=== PATIENT | female | born 1970 | race Caucasian/White ===

== ENCOUNTER → 2022-12-04 | Outpatient (CLI) | payer BC, SELFPAY ==
[2022-12-04 15:34] LABS: EXAGEN MAILED SPECIMEN
[2022-12-04 15:48] LABS: Color, Urine Yellow (Yellow); Glucose, Dipstick Normal (Normal); Ketone-Dipstick Negative (Negative); Leukocyte Esterase-Dipstick Negative /ul (Negative); Nitrite-Dipstick Negative (Negative); Occult Blood-Urine 25 /ul (Negative); Protein-Dipstick Negative (Negative); Specific Gravity, Urine 1.015 (1.002-1.030); Urine Bilirubin Dipstick Negative (Negative); Urine Clarity Clear (Clear); Urine Urobilinogen Normal (Normal)
[2022-12-04 15:50] LABS: Protein, Urine (Random) 9.5 mg/dL (<11.9); Protein:Creat Ratio 102 mg/g CRE (0-200)
[2022-12-04 16:27] LABS: Absolute Lymphocyte Count 3.63 X10^3/uL (0.83-4.51); Absolute Neutrophil Count 6.1 X10^3/uL (2.0-7.7); Basophil# 0.01 X10^3/uL; Basophil% 0.1 % (0-1); Eosinophil# 0.09 X10^3/uL; Eosinophils% 0.9 % (0-5); Hematocrit 42.2 % (37-47); Hemoglobin 13.9 g/dL (12.0-15.0); Lymphocyte # 3.63 X10^3/ul (0.83-4.51); Lymphocyte % 35.1 % (19-41); Mean Corp Hgb Conc 32.9 g/dL (32-36); Mean Corpuscular Hgb 31.5 pg (27.0-32.0); Mean Corpuscular Volume 95.7 fL (81-99); Mean Platelet Vol. 9.7 fl (6.2-12.0); Monocyte% 4.8 % (0-10); NRBC Flagged by Analyzer 0 % (0-5); Neutrophil # 6.08 X10^3/uL (2.7-7.7); Neutrophil % 58.8 % (47-70); Platelet Count 331 K/mm3 (150-450); RBC Distribution Width CV 13.8 % (11.6-14.6); RBC Distribution Width SD 48.5 fl (35.1-43.9); Red Blood Count 4.41 M/mm3 (4.2-5.4); White Blood Count 10.3 K/mm3 (4.4-11.0)
[2022-12-04 16:36] LABS: Partial Thromboplast Time 31.5 Seconds (24.1-36.2); Prothrombin Time (Protime)PT. 12.6 SECONDS (11.7-14.9)
[2022-12-04 16:48] LABS: AST(SGOT) 22 U/L (15-37); Alanine Aminotransfer ALT/SGPT 39 U/L (13-56); Albumin, Serum 3.8 g/dL (3.2-5.0); Alkaline Phosphatase 91 U/L (45-117); Anion Gap 3 (5-15); BUN 12 mg/dL (7-18); BUN/Creat Ratio 20.9 RATIO (10-20); CRP 7.37 mg/L (0.0-3.0); Calcium,Total 8.8 mg/dL (8.5-10.1); Chloride 109 mmol/L (98-107); Creatinine, Serum 0.57 mg/dL (0.55-1.02); EST Glomerular Filtration Rate 117 mL/min (>60); Est Glom Filt Rate - Afr Amer 142 mL/min (>60); Globulin 3.8 g/dL (2.2-4.2); Glucose 93 mg/dL (74-106); Potassium 3.4 mmol/L (3.5-5.1); Protein, Total 7.6 g/dL (6.4-8.2); Sodium Level 138 mmol/L (136-145)
[2022-12-04 17:40] LABS: Hepatitis B Surface Antibody Reactive; Hepatitis B Surface Antigen Non-Reactive (Nonreactive); Hepatitis C Antibody Non-Reactive (Nonreactive)
[2022-12-07 02:07] LABS: Thrombin Time 15.1 sec (0.0-23.0)
[2022-12-07 06:08] LABS: Dilute Prothrombin Time (dPT) 37.8 sec (0.0-47.6); Dilute Russell Viper Venom 34.8 sec (0.0-47.0); Hexagonal Phase Phospholipid 4 sec (0-11); Interpretation Comment: (.); PTT-LA 39.7 sec (0.0-43.5); Thrombin Time 15.2 sec (0.0-23.0); dPT Confirm Ratio 1.05 Ratio (0.00-1.34)
== END | disposition home or self-care (01) ==
PROVIDERS: PCP Family Medicine; Referring Provider Internal Medicine Rheumatology; Visit Provider Internal Medicine Rheumatology
DX: M06.4 Inflammatory polyarthropathy (principal); R76.8 Other specified abnormal immunological findings in serum; M79.7 Fibromyalgia
CPT/HCPCS: 36415; 80053; 81002; 82570; 84156; 85025; 85598; 85610; 85670; 85730; 86140; 86706; 86803; 87340

== ENCOUNTER → 2023-09-12 | Outpatient (CLI) | payer BC, SELFPAY ==
--- NOTE | 2023-09-12 | IMM_PTH ---
PATHOLOGY RESULTS PATIENT: MIRTHA LANGLEY LOC: [facility] U#:[id number] AGE/SX: 52/F ROOM: RE09/12/[address]: Dr. Delvis Terry MD : 1970 BED: DIS: 09/12/2023 SPEC #: [id number] RECD: 09/16/23 12:46 STATUS: YOSSI REQ #: [id number] JOSESITO: 09/12/23 00:[address]: Delvis Terry DEPT: IMMUNOHISTOCHEMISTRY RECD BY: Coral Spencer ENTERED: 09/16/23 12:47 SP TYPE: IMMUNO OTHR DR: Dr. Kwasi Adamson MD Tissues: Left breast, NOS Procedures: SMA (add) CALPONIN-1 (add) Pankeratin (initial) P40 (add) PHYSICIAN & INSTITUTION [place] [id number] SPECIMEN INFORMATION: Tissue Source: Left breast biopsy Clinical Info: Abnormal mammogram left breast Specimen Number: [id number] CPT code: 07280, 19376 x3 METHODOLOGY: Deparaffinized sections of prefer/formalin-fixed tissue or PAP/DQ stained slides are incubated with monoclonal/polyclonal antibodies/oligonucleotide probes. Localization is made via biotin free immunoperoxidase method. Appropriate controls are performed and reacted as expected. Results on target cell population are indicated in the following table: RESULTS: ANTIBODY / CLONE RESULT AE1-3 (AE1/AE3/PCK26) positive Calponin-1 (SZ365Q) positive Actin (1A4) positive P40 (BC28) positive These tests were developed and their performance characteristics determined by [facility]. They may not have been cleared or approved by the [place]. Food and Drug Administration. The FDA has determined that such clearance or approval is not necessary. The above immunohistochemical/dualISH markers are ordered and reviewed by the Pathologist. INTERPRETATION: Left breast, biopsy: Consistent with adenosis with features of adenoma. AM:karina 09/17/2023
--- NOTE | 2023-09-12 14:15 | BRBX_PTH ---
PATHOLOGY RESULTS PATIENT: MIRTHA LANGLEY LOC: [facility] U#:[id number] AGE/SX: 52/F ROOM: RE09/12/[address]: Dr. Delvis Terry MD : 1970 BED: DIS: 09/12/2023 SPEC #: [id number] RECD: 09/12/23 15:19 STATUS: YOSSI SAAVEDRA #: [id number] JOSESITO: 09/12/23 14:[address]: Delvis Terry DEPT: SURGICAL PATHOLOGY RECD BY: Liz Lopes ENTERED: 09/15/23 10:13 SP TYPE: BREAST BX OTHR DR: Dr. Kwasi Adamson MD Tissues: Left breast, NOS Procedures: Surgery Specimen Level IV HEADER OPERATION: Ultrasound-guided needle core biopsy left breast PRE-OP DIAGNOSIS: Abnormal mammogram left breast TISSUE SUBMITTED: Left breast biopsy MICROSCOPIC DIAGNOSIS Left breast, core biopsy: Focal adenosis with fibroadenoma-like change. Mild fibrocystic change, non-proliferative. Banal microcalcifications, rare. See comment. AM:karina 09/16/2023 COMMENT Immunohistochemistry ([id number]) supports the above diagnosis. Case has been reviewed in consultation with Dr. Arana who concurs with the above diagnosis. IDC:[email or web address] MICROSCOPIC DESCRIPTION Slides are reviewed. GROSS DESCRIPTION Received in fixative is one container labeled with the patient's name and designated left breast biopsy. The specimen consists of multiple elongated fragments of low-yellow fibroadipose tissue that in aggregate measure 1.5 x 0.5 x 0.1 cm. The entire specimen is submitted in one cassette. / SJ:karina 09/15/2023 TC:5 Ischemic Time: 1 minute Fixation Time: 79 hours CPT: 62771
--- OUTSIDE RECORDS SUMMARY | 2023-09-12 16:23 | XMS RPT_ITS | CCD ---
Author Name Unknown Address [id number] [place] [address] Organization [facility] Care Team Providers Care Photonics Engineering Technician Name Role Phone Juan Diego NORTON, Maureen Lucio Unavailable Juan Diego NORTON, Maureen Lucio Unavailable [facility] Surgeons Unavailable Dr. Andrew Casanova MD Unavailable Dr. Gabo Whitehead MD Unavailable Rheumatolgy Provider Unavailable Unavailable Betsy NORTON, Dr. Green Unavailable Gastroenterology Provider Unavailable Unavai hector Physical Therapy Provider Unavailable Padmini Watson MD, Dr. Lomas ([facility]) A Unavail able Orthopedic Provider Unavailable Unavailable Nirmala BERGER, Venessa Unavailable Wendy Olivo PA-C Unavailable Joseph NEWMANN, Nidhi Guerrier Unavailable Unavailable Sam BERGER, Nicole C Unavailable Unavailable Tim NEWMANN, Veronica Unavailable Unavailable Valeria DAVE, Jayne Toledo Unavailable Jeffery DAVE, Alli Guerrier Unavailable Jeffery WALTERS, Brigitte Lebron Unavailable Unavail able Amarilys Shay LPN Unavailable Unavailable Jayne Valadez RN Unavailable Unavaila mike Luna LPN, Danial Unavailable Unavailable Catrina NEWMANN, Robyn K Unavailable Unavai lable Paul DAVE, Leonora Hester Unavailable Chriss NEWMANN, Sheila Lebron Unavailable Unavailab dacia Black LPN, Shasta Keith Unavailable Unavailab dacia [place] ASSISTANT CURATOR, Anisha Arroyo Unavailable Unavailab dacia Yousif MA, Amarilys Unavailable Unavailable Soheila NORTON, Madhu Martinez Unavailable Vess ASSISTANT CURATOR, Wilfrid Lebron Unavailable Unavailable Carlos Manuel ASSISTANT CURATOR, Ella Unavailable Unavailabl clarisse Zimmerman ASSISTANT CURATOR, Jen Unavailable Unavailable Unavailable Unavailable MAUREEN ADAMSON Primary Care Unavailable MAUREEN ADAMSON Consulting Unavailable MAUREEN ADAMSON Attending Unavailable MAUREEN ADAMSON Admitting Unavailable PROVIDER, UNKNOWN Consulting Unavailable PROVIDER, UNKNOWN Consulting Unavailable PROVIDER, UNKNOWN Consulting Unavailable MAUREEN ADAMSON Admitting Unavailable MAUREEN ADAMSON Primary Care Unavailable MAUREEN ADAMSON Attending Unavailable Maile'FLIP CORNEJO NP Admitting Unavailable Maile'CORNEJOFLIP Martinez NP Primary Care Unavailable FLIP URBINA FRONT LOADER RESIDENTIAL DRIVER Attending Unavailable MAUREEN ADAMSON Consulting Unavailable PROVIDER, UNKNOWN Consulting Unavailable PROVIDER, UNKNOWN Consulting Unavailable PROVIDER, UNKNOWN Consulting Unavailable Allergies Allergy Classification Reported Allergen(s) Allergy Type Date of Onset Reaction(s) Facility (4 sources) Sulfamethoxazole / Trimethoprim Drug Allergy [facility], [facility]; [facility] Medications Current Medications Medication Drug Class(es) Dates Sig (Normalized) Sig (Original) ALPRAZolam 0.5 mg oral tablet (4 sources) Benzodiazepine Start: 09-01-2023 Xanax 0.5 mg tablet ; 1 Tablet three times daily, as needed for anxiety for 30 days Quantity: 60 {Tablet} Refills: 0 Ordered: 01-Sep-2023 MD Maureen Adamson Start: 01-Sep-2023 Comments: Medication taken as needed. [id number] Completed/Discontinued Medications Medication Drug Class(es) Dates Sig (Normalized) Sig (Original) azithromycin 250 mg oral tablet (4 sources) Macrolide Antimicrobial Start: 07-07-2020 End: 07-31-2020 Zithromax Z-Cristino 250 MG Oral Tablet ; 2 (two) Tablet today and then 1 tablet daily x 4 days for 0 days Quantity: 1 {Package} Refills: 0 Ordered: 31-Jul-2020 AB Black Start: 07-Jul-2020 End: 31-Jul-2020 Status: Inactive 12 hr buPROPion hydrochloride 150 mg extended release oral tablet (8 sources) Aminoketone Start: 08-02-2019 End: 01-17-2020 take 1 tablet by mouth twice daily buPROPion HCl ER (SR) 150 MG Oral Tablet Extended Release 12 Hour ; 1 (one) Tablet bid for 0 days Quantity: 60 {Tablet} Refills: 5 Ordered: 17-Jan-2020 ROMEO Valadez Start: 02-Aug-2019 End: 17-Jan-2020 Status: Inactive Problems Active Problems Problem Classification Problem Date Documented Da te Episodic/Chronic Abdominal pain (20 sources) Abdominal pain; Translations: [Unspecified abdominal pain] 08-06-2021 Episodic Administrative/social admission (20 sources) Issue of repeat prescriptions 05-08-2015 Episodic Allergic reactions (4 sources) Contact dermatitis and other eczema due to plants [except food] 03-04-2012 Episodic Anxiety disorders (20 sources) Generalized anxiety disorder; Translations: [Generalized anxiety disorder] 06-17-2023 Chronic Cardiac dysrhythmias (8 sources) Palpitations; Translations: [Palpitations] 06-15-2013 Episodic Chronic obstructive pulmonary disease and bronchiectasis (16 sources) Bronchitis; Translations: [Bronchitis, not specified as acute or chronic] 06-04-2022 Episodic Esophageal disorders (20 sources) Gastroesophageal reflux disease; Translations: [Gastro-esophageal reflux disease without esophagitis] 06-17-2023 Chronic Fever of unknown origin (8 sources) Fever; Translations: [Fever, unspecified] 07-31-2020 Episodic Fracture of upper limb (12 sources) Fracture of radius; Translations: [Unspecified fracture of right forearm, initial encounter for closed fracture] 06-04-2016 Episodic Genitourinary symptoms and ill-defined conditions (4 sources) Urinary symptoms ; Translations: [Unspecified symptoms and signs involving the genitourinary system] 04-01-2018 Episodic Immunizations and screening for infectious disease (8 sources) Anti-nuclear factor positive; Translations: [Other specified abnormal immunological findings in serum] 06-17-2023 Episodic Influenza (8 sources) Influenza; Translations: [Influenza due to unidentified influenza virus with other respiratory manifestations] 09-03-2019 Episodic Malaise and fatigue (8 sources) Fatigue; Translations: [Other fatigue] 07-31-2020 Episodic Mycoses (12 sources) Opportunistic mycosis; Translations: [Candidiasis, unspecified] 06-17-2023 Episodic Nausea and vomiting (8 sources) Nausea; Translations: [Nausea] 09-02-2017 Episodic Noninfectious gastroenteritis (16 sources) Chronic diarrhea; Translations: [Noninfective gastroenteritis and colitis, unspecified] 07-31-2020 Episodic Nonspecific chest pain (4 sources) Chest pain, unspecified 06-10-2013 Episodic Other aftercare (20 sources) Drug indicated; Translations: [Other terminal press operator (current) drug therapy] 12-18-2011 Episodic Other bone disease and musculoskeletal deformities (12 sources) Costal chondritis; Translations: [Chondrocostal junction syndrome [Tietze]] 06-16-2017 Episodic Other connective tissue disease (4 sources) Pain of left heel; Translations: [Pain in left foot] 02-10-2017 Episodic Other connective tissue disease (4 sources) Muscle pain; Translations: [Myalgia, unspecified site] 11-20-2015 Episodic Other connective tissue disease (12 sources) Pain in limb 06-10-2013 Episodic Other gastrointestinal disorders (8 sources) Irritable bowel syndrome; Translations: [Irritable bowel syndrome without diarrhea] 06-17-2023 Chronic Other lower respiratory disease (12 sources) Cough; Translations: [Cough] 07-31-2020 Episodic Other non-traumatic joint disorders (16 sources) Multiple joint pain; Translations: [Pain in unspecified joint] 06-17-2023 Episodic Other non-traumatic joint disorders (16 sources) Pain in right hip joint; Translations: [Pain in right hip] 06-17-2023 Episodic Other non-traumatic joint disorders (20 sources) Pain in right shoulder; Translations: [Pain in joint, shoulder region] 09-13-2020 Episodic Other non-traumatic joint disorders (4 sources) Joint pain; Translations: [Pain in unspecified joint] 11-06-2015 Episodic Other non-traumatic joint disorders (4 sources) Pain in unspecified knee; Translations: [Pain in joint, lower leg] 01-18-2014 Episodic Other non-traumatic joint disorders (4 sources) Hip pain; Translations: [Pain in right hip] 11-05-2012 Episodic Other nutritional; endocrine; and metabolic disorders (8 sources) Overweight in adulthood with body mass index of 25 or more but less than 30; Translations: [Body mass index (BMI) 27.0-27.9, adult] 07-31-2020 Episodic Other nutritional; endocrine; and metabolic disorders (8 sources) Unexplained weight loss ; Translations: [Abnormal weight loss] 07-31-2020 Episodic Other screening for suspected conditions (not mental disorders or infectious disease) (20 sources) Breast neoplasm screening status; Translations: [Encounter for screening mammogram for malignant neoplasm of breast] 08-04-2023 Episodic Other upper respiratory infections (8 sources) Sinusitis; Translations: [Chronic sinusitis, unspecified] 07-20-2021 Chronic Residual codes; unclassified (4 sources) Tobacco user; Translations: [Tobacco use] 06-17-2023 Episodic Residual codes; unclassified (8 sources) Immunization status unknown; Translations: [Other specified health status] 06-17-2023 Episodic Residual codes; unclassified (8 sources) Insomnia; Translations: [Insomnia, unspecified] 06-17-2023 Episodic Residual codes; unclassified (4 sources) Cancer cervix screening - not needed; Translations: [Procedure and treatment not carried out for other reasons] 06-17-2023 Episodic Rheumatoid arthritis and related disease (12 sources) Inflammatory polyarthropathy; Translations: [Inflammatory polyarthropathy] 06-17-2023 Chronic Screening and history of mental health and substance abuse codes (8 sources) Patient encounter status; Translations: [Encounter for screening for depression] 06-17-2023 Episodic Skin and subcutaneous tissue infections (16 sources) Cellulitis; Translations: [Cellulitis, unspecified] 06-17-2023 Episodic Spondylosis; intervertebral disc disorders; other back problems (8 sources) Cervical disc disorder; Translations: [Cervical disc disorder, unspecified, unspecified cervical region] 06-17-2023 Chronic Spondylosis; intervertebral disc disorders; other back problems (4 sources) Backache, unspecified 11-05-2012 Episodic Sprains and strains (4 sources) Complete tear, knee, anterior cruciate ligament; Translations: [Sprain of anterior cruciate ligament of left knee, initial encounter] 01-25-2014 Episodic Superficial injury; contusion (8 sources) Abrasion of ear region; Translations: [Abrasion of unspecified ear, initial encounter] 07-31-2020 Episodic Unclassified (4 sources) Follow Up for Multiple Chronic Conditions - The patient is here for follow-up of anxiety, GERD and insomnia. The patient always takes the prescribed medications. No side effects noted (needs refills). The patient has an active lifestyle but no regular exercise program. The patient's out of office blood pressure checks occur rarely and dietary compliance is fairly good usually adhering to recommendations. The patient states that weight has decreased (down 4 pounds) and headaches are noted often but not on daily basis. Note for Multiple chronic conditions follow-up : Complains of nausea and vomiting over the past several months and getting worse. This has angelo a chronic problem , worse recently. 05-20-2022 Unclassified (4 sources) Follow Up for Multiple Chronic Conditions - The patient is here for follow-up of anxiety, GERD and other condition(s) (IBS). The patient always takes the prescribed medications. No side effects noted. The patient has an active lifestyle but no regular exercise program. The patient's out of office blood pressure checks occur rarely and dietary compliance is fairly good usually adhering to recommendations. The patient states that there is no recent angina or dyspnea, depression has worsened (Has a very difficult time going to sleep for the past month.) and headaches are rarely noted. Note for Multiple chronic conditions follow-up : reviewed by [facility] 03-20-2021 Unclassified (4 sources) Follow up for multiple chronic conditions - The patient is here for follow-up of anxiety and GERD. The patient always takes the prescribed medications. No side effects noted. The patient has an active lifestyle but no regular exercise program. The patient's out of office blood pressure checks occur rarely. The patient states that weight has increased. The patient states that the disease has no overall impact. Note for Multiple chronic conditions follow-up : Has right hip pain. Lots of popping. Can't sleep on that side any longer due to the pain.Epigastric discomfort is better. Less coughing as well.Feels anxiety has been better. Does take xanax daily which is variable in effectiveness. 07-31-2020 Unclassified (4 sources) Follow Up for Multiple Chronic Conditions - The patient is here for follow-up of anxiety and GERD. The patient always takes the prescribed medications. No side effects noted (no refills needed today). The patient has an active lifestyle but no regular exercise program (does alot of walking at work/home). The patient's out of office blood pressure checks occur rarely and dietary compliance is fairly good usually adhering to recommendations. The patient states that there is no recent angina or dyspnea, weight has increased (8lbs since [facility]YS) and headaches have been noticed occasionally. Note for Multiple chronic conditions follow-up : No concerns for today. reviewed by [facility] 01-17-2020 Unclassified (4 sources) Follow Up for Multiple Chronic Conditions - The patient is here for follow-up of anxiety, GERD and other condition(s) (chronic diarrhea, has been imroving. Has decreased energy and no appetite.). The patient always takes the prescribed medications. Side effects noted (needs refills). The patient has an active lifestyle but no regular exercise program. The patient's out of office blood pressure checks occur occasionally and dietary compliance is fairly good usually adhering to recommendations. The patient states that weight has decreased (down 6 pounds in the past month.) and mood is unchanged (since changing to Bupropion has anger issues.). Note for Multiple chronic conditions follow-up : WE stopp fluoxetine last month and switched her to bupropion. her GI sx have improved. 05-10-2019 Unclassified (4 sources) Abdominal pain - The onset of the abdominal pain has been gradual and has been occurring in a persistent pattern for months (month and a half). The course has been increasing. The pain is described as a severe burning (is higher but after she eats it is lower and hurts). The pain is located in the periumbilical area and does not radiate. The symptoms are aggravated by meals (1/2 to 1 hour after eating) (if she doesn't eat it's a dull pain, like hunger) but have no relieving factors. The symptoms have been associated with diarrhea (always since month and a half), fever (off and on, tmax 100), nausea and weight loss, while the symptoms have not been associated with dysuria, heartburn or hematemesis. Note for Abdominal pain : 2 wks ago she was having a BM which was loose. No straining but hurt so bad that she felt like she was going to pass out and felt nauseous. Laid down and then felt fine.Has had chills and occasional night sweats.Maternal aunt had stomach cancer.BMs are light yellow/mucous. No blood.Didn't start with diarrhea right after her gallbladder was removed.Weight i down 11 pounds in 6 months and she is not trying to lose weight.Burning improved a little after gallbladder was removed.Symptoms improved some when she increased her omeprazole to 2 pills daily and started probiotic a couple of weeks ago but then seemed to worsen again.Admits to being anxious a lot but feels like it stems from her stomach symptoms, not vice versa.Symptoms were really bad after she had a beer - immediately had to have a BM - the same happened with wine prior to that. Coffee sometimes causes symptoms and sometimes doesn't.Stool urgency at times.Had been taking ibuprofen 600mg every 6 hours consistently but cut back about 1.5 months ago and has only taken it very infrequently since then. 12-25-2018 Unclassified (4 sources) Follow up for multiple chronic conditions - The patient is here for follow-up of anxiety and GERD. The patient always takes the prescribed medications. No side effects noted. The patient has an active lifestyle but no regular exercise program. The patient's out of office blood pressure checks occur rarely and dietary compliance is fairly good usually adhering to recommendations. The patient states that in general mood has improved. The patient states that the disease has no overall impact. Note for Multiple chronic conditions follow-up : She would like to discuss decreasing the dose on her fluoxetine from 40mg to 20mg- She is feeling well on this current dose but would like to see if the 20mg johnnie control symptoms in the same way. She seperated her R shoulder 1 year ago, was in ER , followed marvin Watson. She did PT. Now sx are worsening , pain o upper portion of R shoulder. 02-09-2018 Unclassified (4 sources) Follow up for multiple chronic conditions - The patient is here for follow-up of anxiety and GERD. The patient always takes the prescribed medications. No side effects noted. The patient has an active lifestyle but no regular exercise program. The patient's out of office blood pressure checks occur rarely. The patient states that there is no recent angina or dyspnea, there are no vision changes or weakness and they do not have headaches. Note for Multiple chronic conditions follow-up : patient having right side pain, located on arm and right side of chest. hurts when coughing . This has been for several months. She has sen chirpracter and massage. It is improving. 07-28-2017 Unclassified (4 sources) pain - She is here because she has been dealing with pain in her neck and around to right shoulder/chest. At her last appt she was given steroids - feels that the she has improved (most feels better other than under her right arm and along right chest) - zambrano and pulling feeling. Has history of blood clots - leg (one was unprovoked but they thought it was due to OCP and 2nd was following broken foot). She has had mammogram in past but it has been a while (last ordered through corporate law assistant). 06-16-2017 Unclassified (2 sources) Heel Pain - Pt has been experiencing some left heel pain for couple months. Pain is located on bottom of foot and shoots up back of heel. Pt has wearing tennis shoes that have some support most days. Has not tried any OTC medication. No swelling of foot or heel. Pain is worse when she has been on feet all day. reviewed by [facility] 02-10-2017 Unclassified (2 sources) [ADDITIONAL REASON] Follow Up for Multiple Chronic Conditions - The patient is here for follow-up of GERD and other condition(s) (Generalized anxiety.). The patient always takes the prescribed medications. No side effects noted (Uses Xanax prn. Up to one a day at that most.). The patient engages in regular exercise program 3-5 times per week (walks on trail daily.). The patient states that there is no recent angina or dyspnea, there are no vision changes or weakness, weight has increased (up 2# rom last visit.) and they do not have headaches. The patient states that the disease has mild emotional impact. Note for Multiple chronic conditions follow-up : GERD is doing well. Only uses Omeprazole prn. reviewed by [facility] 02-10-2017 Unclassified (4 sources) Follow up for multiple chronic conditions - The patient is here for follow-up of other condition(s) (anxiety). The patient always takes the prescribed medications. No side effects noted. The patient states that in general mood has improved. Note for Multiple chronic conditions follow-up : she had increased fluoxetine to 40mg but had felt like that was too much and now is back at 20mg qd, she feels like her anxiety is controlled.States that daughter is no in rehab in [place] for minimum 30days - will then be transferred to [place] for re-eval...grandchildren are in temporary custody of paternal grandparents and Miranda is able to see them.... 04-16-2016 Unclassified (4 sources) Follow Up for Multiple Chronic Conditions - The patient is here for follow-up of other condition(s) (anxiety). The patient always takes the prescribed medications. Side effects noted (ambien makes her feel hyper so pt. has only taken this medication twice. She denies any SE to fluoxetine). The patient has an active lifestyle but no regular exercise program. The patient's out of office blood pressure checks occur rarely. The patient states that breathing effort is stable, there is no recent angina or dyspnea (no panic attacks since starting medication.), weight has decreased, in general mood has improved (questioning if fluoxetine and be increased slightly. At the end of the day, pt. feels more anxious.) and sleep patterns have improved (still has trouble at times). 02-26-2016 Unclassified (3 sources) Follow up for multiple chronic conditions - The patient is here for follow-up of GERD and other condition(s) (anxiety.). The patient always takes the prescribed medications. No side effects noted. The patient has an active lifestyle but no regular exercise program. The patient's out of office blood pressure checks occur rarely and dietary compliance is fairly good usually adhering to recommendations. The patient states that breathing effort is stable, there is no recent angina or dyspnea, there are no vision changes or weakness, depression has worsened (has daughter and grandkids living with her and with work.) and they do not have headaches. mykel watson. Note for Multiple chronic conditions follow-up : reviewed by [facility] 08-01-2014 Unclassified (3 sources) [ADDITIONAL REASON] Transition into care - The patient is transitioning into care from another physician (mykel watson for knee surgery.) and a summary of care was not provided . 08-01-2014 Unclassified (4 sources) Follow Up for Multiple Chronic Conditions - The patient is here for follow-up of other condition(s) (anxiety and smoking cessation.). The patient always takes the prescribed medications. No side effects noted (takes Wellbutrin for anxiety and smoking cessation and uses xanax prn.). The patient has an active lifestyle but no regular exercise program. Note for Multiple chronic conditions follow-up : Pt states is down to about 10 cigarettes a day. Used to smoke at least pack a day. Still finds herself very anxious at times where she will get palpatations and will find herself breathing heavy for few minutes and then itis gone. Just comes on at any given time. Says she has dealt with this forever but happening more frequently since trying to stop smoking. Pt does have SAD sx as well. 08-17-2012 Unclassified (2 sources) Follow Up for Multiple Chronic Conditions - The patient is here for follow-up of GERD and other condition(s) (Generalized anxiety.). The patient always takes the prescribed medications. No side effects noted (Uses Xanax prn. Up to one a day at that most.). The patient engages in regular exercise program 3-5 times per week (walks on trail daily.). The patient states that there is no recent angina or dyspnea, there are no vision changes or weakness, weight has increased (up 2# rom last visit.) and they do not have headaches. The patient states that the disease has mild emotional impact. Note for Multiple chronic conditions follow-up : GERD is doing well. Only uses Omeprazole prn. reviewed by [facility] 02-10-2017 Unclassified (2 sources) [ADDITIONAL REASON] Heel Pain - Pt has been experiencing some left heel pain for couple months. Pain is located on bottom of foot and shoots up back of heel. Pt has wearing tennis shoes that have some support most days. Has not tried any OTC medication. No swelling of foot or heel. Pain is worse when she has been on feet all day. reviewed by [facility] 02-10-2017 Unclassified (1 source) Transition into care - The patient is transitioning into care from another physician (mykel watson for knee surgery.) and a summary of care was not provided . 08-01-2014 Unclassified (1 source) [ADDITIONAL REASON] Follow up for multiple chronic conditions - The patient is here for follow-up of GERD and other condition(s) (anxiety.). The patient always takes the prescribed medications. No side effects noted. The patient has an active lifestyle but no regular exercise program. The patient's out of office blood pressure checks occur rarely and dietary compliance is fairly good usually adhering to recommendations. The patient states that breathing effort is stable, there is no recent angina or dyspnea, there are no vision changes or weakness, depression has worsened (has daughter and grandkids living with her and with work.) and they do not have headaches. mykel watson. Note for Multiple chronic conditions follow-up : reviewed by [facility] 08-01-2014 Viral infection (4 sources) Herpes zoster; Translations: [Zoster without complications] 06-26-2017 Episodic Past or Other Problems Problem Classification Problem Date Documented Da te Episodic/Chronic Unclassified (4 sources) Well Adult, female - The patient feels well with minor complaints (Continues with joint pain), has decreased energy level and is sleeping poorly. The first day of the last menstrual period was : (Hysterectomy 2014). The patient has a balanced diet and takes supplemental vitamins. The patient does not exercise. The patient sleeps 4 hours per night. Note for Well Adult, female : Is fasting today 06-17-2023 Unclassified (4 sources) cellulitis - Seen in office 01/30/23 for cellulitis, was given Bactrim. Pt completed 7 days of Bactrim and broke out into hives, D/C'd TX and started Keflex, finished Keflex and rash still remains. Located in stomach and surrounding area. Voices c/o pain, area red. 02-21-2023 Unclassified (4 sources) Rash - The onset of the rash has been gradual and has been occurring in a persistent pattern for 5 days. The course has been increasing. The rash is characterized as red. The rash was first seen on the abdomen (belly button). It spread to no progression (just spreading further around the belly button). There has been associated pain, erythema and edema. There has been associated chills. Note for Rash : started as a very little spot that had a white headwas cleaning w peroxide and a vaishali on it reviewed by [facility] 01-30-2023 Unclassified (4 sources) Joint Complaints multiple - The onset of the joint complaints has been acute , and they have been occurring in an increasing pattern for years. The course has been gradually worsening. The joint complaints are described as a moderate to severe pain, redness, swelling, stiffness and tenderness. The pain is located in the neck, spine, left elbow, right elbow, left wrist, right wrist, left hand, right hand, left knee, right knee, left ankle, right ankle, left foot and right foot. There are no aggravating factors. The joint complaints are relieved by acetaminophen and NSAIDs. Note for Joint complaints : Father has RA and temporal arteritis, some cousins. 11-12-2022 Unclassified (4 sources) Cough - The onset of the cough has been acute and has been occurring for 1 week. The course has been constant. The cough is characterized as productive of mucoid sputum. The cough occurs all the time. Associated symptoms include headache. Note for Cough : right ear pain reviewed by [facility] 06-04-2022 Unclassified (4 sources) Abdominal pain - The onset of the abdominal pain has been acute and has been occurring in an episodic pattern for 9 days. Each episode lasts 30 minutes. The course has been recurrent. The pain is described as a moderate sharp pain. The pain is located in the entire abdomen and does not radiate. The symptoms are relieved by bowel movements. The symptoms have been associated with constipation, heartburn and nausea. Note for Abdominal pain : No recent antibiotics or travel.Last BM was 2 days ago at 3am - hard initially but then loose; pain with it.Taking probiotic; continues on omeprazole 40mg daily.Lots of abd cramping, sweating, nausea, hands going numb (tried xanax but it made her stomach cramp so she stopped). Did have an episode when she was pushing to have BM and had pain around her back to lower pelvis and then directly down - felt like labor pain. Ever since has felt like it is hard to hold her urine. Pain starts when she has to have BM and is better after BM. Lots of belching. Pepto has helped with indigestion. 07-20-2021 Unclassified (4 sources) Cold Symptoms - Symptoms include sneezing, nasal congestion, runny nose, ear pain (bilateral, left side is worse.), ear fullness, sore throat, dry cough, productive cough (occasionally), fever (highest 100.8), general malaise and headache, but do not include chills. The onset was sudden 1 week(s) ago. The symptoms occur constantly. The patient describes this as moderate in severity and worsening. Current treatment includes non-prescription cold medication. Note for Upper respiratory infection : Complains of chest hurting with deep breaths, increased fatigue. 04-30-2021 Unclassified (4 sources) Hip pain - The onset of the hip pain has been gradual and has been occurring in a persistent pattern for months. The course has been without change (now is having times where hip gives out and cause pt to fall; has happened 3 times in the past 2 weeks). The hip pain is described as being located in the right hip. The hip pain radiates to the anterior thigh. Note for Hip pain : Hip went out yesterday as she was turning and pt tried to catch herself (grabbed on to car overhead handle with right arm and fell forward) and now she is having right shoulder pain. that same shoulder years ago. Has been doing ice/heat application and taking ibuprofen which does help. Has been doing PT for hip and feels it is helping. 09-13-2020 Unclassified (4 sources) Nausea - The onset of the nausea has been acute and has been occurring in an intermittent pattern. The course has been increasing. Note for Nausea : Nausea gets worse when she is up and doing something, also has some SOB with exertion, no chest pain, has some burning and tightness in epigastric area - not having this right now. Unsure if it is food related since hasn't really been eating. Has a dry cough.Painful BMs - gets lower abd cramping and then it improves temporarily after a BM. Imodium helps but cramping gets worse with this.Chills and body aches.Has been on omeprazole 20mg for extended period of time.Decreased appetite.No loss of taste or smell.Normal EGD and colonoscopy 12/2018. 07-07-2020 Unclassified (4 sources) Joint complaints (multiple) - Note for Joint complaints : Pt is here today complaining of persistent symptoms.Was seen 05/31/2020 for cold symptoms with a fever - negative covid test.Continued with joint pain, cold sweats, fatigue, etc but no rash. No further fever. Has swelling of joints of hands (bilat) and feet - morning stiffness of both - better after gets going. Also has right hip pain - if lays on it or it goes into groin.Has a physical job - was breathing heavy after doing that and wearing her mask last week. Restarted smoking about 6 months ago - smoking 1 PPD.No known tick bite.Feels had a recent flare-up of IBS. Previously saw GI, Dr. Alvarenga, and was given bentyl but had side effects with that. Family history - dad- HTN, RA; sister- HTN, maternal gma - thyroid issues; sister - melanoma; paternal grandma - lung cancer; paternal gpa - lung cancer. 07-03-2020 Unclassified (4 sources) Recheck - Patient was last seen 05/31/2020 for fever, had negative Covid-19 test at that time. Is feeling worse. Is having all over body aches, joint and muscle aches. Is having chest tightness. Been having more headaches. Denies having fever recently. feels very tired, weak. Feels shaky and gets sweats. Started about 2 days ago with diarrhea, is having multiple times daily. States that she does have IBS. Been taking Ibuprofen for the pain. Feels very nauseated. No vomiting. reviewed by [facility] 06-30-2020 Unclassified (4 sources) Cold Symptoms - Symptoms include sneezing, runny nose, ear pain (left side), ear fullness, sore throat, dry cough, fever (highest 102), chills, general malaise and headache. The onset was sudden 5 day(s) ago. The symptoms occur constantly. The patient describes this as unchanged. Current treatment includes non-prescription cold medication. Note for Upper respiratory infection : Increased fatigue and slight chest tightness. reviewed by [facility] 05-31-2020 Unclassified (4 sources) Ear pain - The pain has been occurring in an intermittent pattern for 3 weeks (has had intermittent left ear pain for the past 3 weeks but is worse today). The course has been increasing. The pain is described as a sharp pain and pressure. The pain is described as being located in the inner ear and behind the ear (over mastoid) (above the ear). The pain is felt in the left ear. The symptoms have been associated with sore throat (on the left side) and vertigo (some), while the symptoms have not been associated with decreased hearing. Note for Ear pain : Yesterday had low grade fever was 100 F and did not feel well.Today, noticed some bloody drainage from the left ear when she swabbed her left ear.Patient denies any chills, body aches, or headache. She states that she does not usually use cotton swabs inside her ear. She has not been around anyone who has been sick and she has not been at any large gatherings. 03-28-2020 Unclassified (4 sources) Cold Symptoms - Note for Upper respiratory infection : Was treated for influenza with Tamiflu 09-03-19 due to influenza exposure at work. Started with productive cough over the past couple of day and right ear pain. Fever last evening 100.7. reviewed by [facility] 09-07-2019 Unclassified (4 sources) Follow up consultation - The patient is here to follow-up after Emergency Room/Urgent Care ([facility] with abdominal pain.) on : (04-05-19). Note for Consultation follow-up : Has a histor of IBS. Continues with abdominal pain and nausea. Occasional constipation. Weight is down 21 pounds since May. Also states Im so tired all the time . reviewed by [facility] 04-06-2019 Unclassified (4 sources) Abdominal pain - The onset of the abdominal pain has been acute and has been occurring in a persistent pattern for 4 days. The course has been recurrent. The pain is described as a severe burning, sharp pain, pressure sensation, fullness and cramping. The pain is located in the right upper quadrant and radiates to the back and right upper quadrant. The symptoms are aggravated by meals (1/2 to 1 hour after eating) but have no relieving factors. The symptoms have been associated with bloating, chest pain, diarrhea, fever, heartburn and nausea, while the symptoms have not been associated with vomiting. Note for Abdominal pain : reviewed by [facility] 06-15-2018 Unclassified (2 sources) UTI - Symptoms include urinary frequency, urinary urgency and back pain. The pain is located in the back. There is no radiation. The patient describes the pain as dull and aching. Onset was gradual week(s) ago. There is no known event that preceded symptom onset. The symptoms occur constantly. The patient describes this as moderate in severity and unchanged. Associated symptoms include fever (low grade), chills and nausea. Note for UTI : reviewed by [facility] 04-01-2018 Unclassified (2 sources) [ADDITIONAL REASON] Cold Symptoms - Symptoms include sore throat, scratchy throat, dry cough, wheezing, fever (low grade), chills, general malaise (no energy - achy) and headache, but do not include nasal congestion, runny nose or productive cough. The onset was gradual 2 day(s) ago. The symptoms occur constantly. The patient describes this as moderate in severity and worsening. Current treatment includes acetaminophen and NSAIDs. Risk factors do not include child in daycare or smoking. The patient has not been exposed to an individual with a cough, an individual with an upper respiratory infection, an individual with similar symptoms or an individual with strep. Note for Upper respiratory infection : Had fever of 101 yesterday 04-01-2018 Unclassified (4 sources) r/o shingles - patient was in twice in May for right shoulder pain, and costochondritis, she was last given prednisone for the pain, shock feeling of pain ; when she finished the prednisone she then broke out in blisters on her right inner thigh. They were itchy to start and are now burning and tingly.... 06-26-2017 Unclassified (4 sources) Back pain - The onset of the back pain has been gradual and has been occurring in a persistent pattern for 3 weeks. The course has been increasing. The pain is located in the upper back (right back, shoulder, under arm pit and around to her right chest. Also goes up her neck and to her head on the right side). The symptoms are relieved by nothing (Hurts all the time and tried to lift hull and dropped it. Has tried ibuprofen but that doesn't really help. Hurts to breathe and talk. Feels she is not short of breath but has to take shallow breaths due to pain. Has a little dry cough. Is going to see a massage therapist. Last week she did think she had the flu - vomiting, nausea and low fever. She still has nausea and is shaky. Did get flu shot yesterday.). Note for Back pain : Has been doing ice application.Initially when this started she woke up with the pain in the morning so just thought she had slept wrong.Had a seperated shoulder in January but that healed up fine with therapy.Symptoms are worsening.Has had intermittent nausea this entire time. 06-07-2017 Unclassified (4 sources) Right arm check - Took off cast 3 days due to skin irritation. Here for arm check. Is doing well. reviewed by [facility] 06-04-2016 Unclassified (4 sources) Cast check - Fracture of right radius. Here for one week cast check. 05-14-2016 Unclassified (4 sources) Wrist Pain - The pain is in the right wrist and is described as being located in the entire wrist. The onset of the wrist pain has been acute and has been occurring for 1 day (fell this morning.). Note for Wrist pain : Swollen and painful. 05-07-2016 Unclassified (4 sources) Anxiety - The onset of the anxiety has been gradual and has been occurring in a persistent pattern for 6 months. The course has been increasing. The anxiety is characterized as apprehension, expectant dread, sinking feeling and nervousness. Precipitating factors include specific circumstances (daughter has fallen back into drug abuse pattern and is now homeless. she has her 2 children with her aged 2 and 4...Miranda states that she never knows where they are or if they are safe until they show up - dirty and hungry...she states that childrens services is involved. the one mena father does not want custody of his son...the other mena father is willing to share custody and take both boys so they are not . Otis daughter is angry with her family for reporting her to children services....). The symptoms have been associated with diarrhea, dry mouth, feeling of sadness, headache, insomnia (she states that in the past she has used xanax for prn anxiety - this is not helping right now and she notes that the xanax is not even helping her sleep...), nausea and palpitations, but have not been associated with hallucinations, illusions, paresthesias, suicidal thoughts, vomiting or weight loss. 02-07-2016 Unclassified (4 sources) Joint complaints (multiple) - The onset of the joint complaints has been gradual , and they have been occurring in an increasing pattern for months. The course has been gradually worsening. The joint complaints are described as a moderate to severe swelling and tenderness. The pain is located in the right shoulder, right hand (and left hand will get a little tender but right is the worst.) and right hip. There are no aggravating factors. Associated symptoms include fatigue (and just flu symptoms of aches all over and just not feeling well. Labs done and here to discuss results.). Note for Joint complaints : Pt was started on Prednisone and took last dose on Friday and that has helped quite a bit. Prednisone has made pain tolerable. Pain is mostly muscular. Pain is present on awakening, no particular activity worsens it. 11-20-2015 Unclassified (4 sources) Multiple complaints - Note for Multiple complaints : Complains of right shoulder, arm and right hand pain for several weeks and getting worse. Has family history of rheumatoid arthritis. Also complains of cysts in the arch of right foor. Also complains of generalized body aches and occasional low grade fevers. 11-06-2015 Unclassified (4 sources) Knee pain - The onset of the knee pain has been acute and has been occurring in a persistent pattern for 2 days. The course has been increasing. The knee pain is moderate to severe in the left knee. The knee pain is characterized as a sharp stabbing. The knee pain is described as being located in the medial knee, lateral pain and under patella. The knee pain is aggravated by physical activity. The knee pain is relieved by NSAIDs (relieves, but no resolution). The symptoms have been associated with giving way, joint swelling, instability, warmth, difficulty arising from chair and difficulty going up and down stairs, but have not been associated with erythema, burning sensation, fever or other joint complaints. Note for Knee pain : back in november she had popped her knee when she was standing and turning, it was doing well until friday when she was in a squatting position and tried to turn - herad a pop and knee gave way 01-18-2014 Unclassified (4 sources) Shoulder pain - The onset of the shoulder pain has been sudden following no specific incident and has been occurring in an intermittent pattern for 3 months. The course has been gradually worsening. The pain is characterized as a moderate sharp stabbing. The pain is described as being located in the right shoulder and is aggravated by physical activity, any movement and lifting. Relieving factors include medication (Ibuprofen takes the edge off but does not take away pain completely.). The symptoms have been associated with painful ROM and decreased ROM (and now also having some numbness and tingling in right ring finger and 5th finger. Also feels like pain is moving up towards side of neck and giving her some slight headaches at times.). There has been no previous diagnostic testing. There have been no previous evaluations. There has been no previous physical therapy. Note for Shoulder pain : reviewed by [facility] 11-29-2013 Unclassified (4 sources) Abdominal pain - The onset of the abdominal pain has been gradual and has been occurring for 5 days. The course has been recurrent. The pain is described as a moderate burning. The pain is located in the upper abdomen and radiates to the back. The symptoms have no aggravating factors but are relieved by antacids (Took 4 tums for first time today and they relieved the pain a little but not completely.). The symptoms have been associated with bloating (and gassy), diarrhea, nausea and vomiting. Note for Abdominal pain : No previous evaluations. Does have Gall Bladder. No new stressors, no chnages in diet. 10-08-2013 Unclassified (4 sources) Leg Pain - The leg pain began gradually over time and has been occurring for 2 weeks. The symptoms have been occurring in a recurrent pattern. The symptoms are described as a burning sensation and cramping and are moderate to severe. The symptoms occur when walking. There is involvement of the left lower extremity (knee. Pain starts behind knee and radiates to upper left thigh and around to front of leg. No numbness noted.). There are no precipitating factors. Aggravating factors include exertion. Relief is provided by lying down (at times). The symptoms have been associated with dizziness (random and she cant tell if related), fatigue and fever, while the symptoms have not been associated with blurred vision, dyspnea, focal neurologic deficits, pallor of extremity, paresthesias, numbness and tingling in toes, foot/leg ulcers or calf swelling. Note for Leg pain : Pt has h/o dvt's (first after OCP usage, second after breaking her foot and being on bedrest). Other clots have been in her right leg. Pt has taken asa in the last 2 weeks (not today or yesterday) Denies SOB, diaphoresis 06-10-2013 Unclassified (4 sources) Abdominal pain - The onset of the abdominal pain has been acute and has been occurring in a persistent pattern for 4 days. The course has been increasing. The pain is described as a moderate dull ache and cramping. The pain is located in the left lower quadrant and radiates to the epigastrium and periumbilical area. The symptoms are aggravated by meals (1/2 to 1 hour after eating) but are relieved by antacids (minimal relief). The symptoms have been associated with bloating, diarrhea (initally, no BM today), nausea and use of alcohol (drinks socially only not daily), while the symptoms have not been associated with anorexia, chest pain, constipation, dark urine, dysuria, fever, heartburn or vomiting. 12-23-2012 Unclassified (4 sources) Hip pain - The onset of the hip pain has been sudden following no specific incident and has been occurring in a persistent pattern for 1 day. The course has been worsening. The hip pain is described as being a moderate to severe sharp stabbing located in the hip. The hip pain radiates to the right buttock (radiation down posterior thigh to knee. as well as up into back). The pain is aggravated by general physical activity and any movement. Relieving factors include elevation of leg. The symptoms have been associated with limping, numbness, tingling (slightly), difficulty arising from chair and difficulty arising from a kneeling position, while the symptoms have not been associated with stiffness, weakness, muscle atrophy, swelling in the leg, trauma, fever or other joint complaints. There have been no previous diagnostic tests. There have been no previous evaluations. There has been no previous physical therapy. There has been no previous surgeries. There has been no need for use of assistive devices. Previous medications have included NSAID. Note for Hip pain : Pt. states I have a h/o arthritis in my hip Pt. usually takes aleve with relief from discomfort. Pt. has not had x-rays done, but states her whole family has arthritis problems. SHe also has history blood clot x 2 (both were s/p surgery) 11-05-2012 Unclassified (4 sources) Rash - The onset of the rash has been acute and has been occurring in a persistent pattern for 10 days. The course has been increasing. The rash is characterized as red, weeping and grouped in crops. The rash was first seen on the upper extremity (right). It spread to the trunk and the lower extremity. There has been associated itching and drainage, while there has been no associated pain or edema. There has been no associated fever or mucous membrane lesions. Note for Rash : Pt. has tried otc remedies with no improvement. Pt. has never had poison linda before. 03-04-2012 Unclassified (4 sources) anxiety issues - Patient is here and describes feeling very anxious. Thinks this episode is worse. She takes Xanax 0.5mg one half tablet at bedtime. Last night she had chest pain and heart pounds very hard. She took another 1/2 tab last evening and still feels strung out. . She thinks this is anxiety. Work is very stressful right now. Is not taking the Wellbutrin as previously prescribed. States that she felt increased anxiety while taking the Wellbutrin. 09-02-2011 Unclassified (4 sources) F/U anxiety/depression - Pt here for f/u on anxiety and depression. Wellbutrin working well. Only uses the xanax mainly at night prn when she can't sleep and mind racing. No refills needed today. No other concerns today. Feels is doing well. Just had Tetanus 3 years ago.I had seen her 1 month ago and started the Wellbutrin at that time. Less bad adys and not as severe. 04-29-2011 Unclassified (4 sources) Increased Anxiety and Stress - Is having increased anxiety and stress at home and would like to discuss medication. She has a teenage daughter who is in legal trouble and is also and lives in the home w pt. Pt is fearful that she will end up raising the child.Sx include panic attacks, pervasive anxious feeling, difficulty sleeping. Xanac has worked well in past but not as well now and she does not like to take it when working. In past she was on Paxil ( not effective ), Effexor ( side effects ) and then was on Buspar for a prolonged time. Buspar helped but was not completely effective. 03-27-2011 Unclassified (4 sources) left lower extremity pain - [place]ed [place] and injured left lower leg, has quite a bit of bruising, pt is concerned she has a DVT, has had before and sx are similar. 01-17-2011 Unclassified (2 sources) Cold Symptoms - Symptoms include sore throat, scratchy throat, dry cough, wheezing, fever (low grade), chills, general malaise (no energy - achy) and headache, but do not include nasal congestion, runny nose or productive cough. The onset was gradual 2 day(s) ago. The symptoms occur constantly. The patient describes this as moderate in severity and worsening. Current treatment includes acetaminophen and NSAIDs. Risk factors do not include child in daycare or smoking. The patient has not been exposed to an individual with a cough, an individual with an upper respiratory infection, an individual with similar symptoms or an individual with strep. Note for Upper respiratory infection : Had fever of 101 yesterday 04-01-2018 Unclassified (2 sources) [ADDITIONAL REASON] UTI - Symptoms include urinary frequency, urinary urgency and back pain. The pain is located in the back. There is no radiation. The patient describes the pain as dull and aching. Onset was gradual week(s) ago. There is no known event that preceded symptom onset. The symptoms occur constantly. The patient describes this as moderate in severity and unchanged. Associated symptoms include fever (low grade), chills and nausea. Note for UTI : reviewed by FLAVIA 04-01-2018 Results Test Name Value Interpretation Reference Range Facil ity Vital Signs Date Time Vital Sign Value Performing Clinician Saud malik 06-17-2023 10:040 Body height 161.29 cm [facility].; [place] [facility] [place]. 06-17-2023 10:0400 Body mass index (BMI) [Ratio] 24.58 kg/m2 [facility].; [place] [facility], [place]. 06-17-2023 10:21-0400 Body surface area Derived from formula 1.68 m2 [facility], [facility].; [place] [facility], [place]. 06-17-2023 10:0400 Body weight 63.96 kg [facility], [facility].; [place] [employer] [facility] [place]. 06-17-2023 10:210400 Diastolic blood pressure 81 mm[Hg] [facility].; [place] [employer] [facility] [place]. Encounters Encounter Date Encounter Type Care Provider Facility Start: 09-08-2023 End: 09-08-2023 Orders [facility] Start: 09-04-2023 End: 09-04-2023 ambulatory [facility] Start: 08-26-2023 End: 08-26-2023 ambulatory [facility] Start: 08-04-2023 End: 08-04-2023 Orders Maureen Adamson MD Work Phone: [facility] Start: 06-26-2023 End: 06-26-2023 ambulatory [facility] Start: 06-26-2023 Encounter for gynecological examination (general) (routine) without abnormal findings [facility] Start: 06-17-2023 End: 06-17-2023 Patient encounter status Maureen Adamson MD Work Phone: [facility] Start: 06-17-2023 End: 06-17-2023 Periodic preventive med est patient 40-64yrs Maureen Adamson MD Work Phone: [facility] Start: 02-21-2023 End: 02-21-2023 Office outpatient visit 15 minutes Maureen Adamson MD Work Phone: [facility] Start: 02-06-2023 End: 02-06-2023 Medication Maureen Adamson MD Work Phone: [facility] Start: 02-05-2023 End: 02-05-2023 Medication Maureen Adamson MD Work Phone: [facility] Start: 01-30-2023 End: 01-30-2023 Office outpatient visit 15 minutes Maureen Adamson MD Work Phone: [facility] Start: 11-14-2022 End: 11-14-2022 Orders Maureen Adamson MD Work Phone: [facility] Start: 11-12-2022 End: 11-12-2022 Office outpatient visit 15 minutes Maureen Adamson MD Work Phone: [facility] Start: 06-04-2022 End: 06-04-2022 Office outpatient visit 15 minutes Maureen Aadmson MD Work Phone: [facility] Start: 05-20-2022 End: 05-20-2022 Office outpatient visit 15 minutes Maureen Adamson MD Work Phone: [facility] Start: 08-06-2021 End: 08-06-2021 Orders Maureen Adamson MD Work Phone: [facility] Start: 07-20-2021 End: 07-20-2021 Patient encounter procedure Maureen Adamson MD Work Phone: [facility] Start: 04-30-2021 End: 04-30-2021 Office outpatient visit 15 minutes Maureen Adamson MD Work Phone: [facility]. Start: 03-20-2021 End: 03-20-2021 Office outpatient visit 15 minutes Maureen Adamson MD Work Phone: [facility]. Start: 09-13-2020 End: 09-13-2020 Patient encounter procedure Maureen Adamson MD Work Phone: [facility]. Start: 08-25-2020 End: 08-25-2020 Medication Maureen Adamson MD Work Phone: [facility] Start: 08-02-2020 End: 08-02-2020 Orders Maureen Adamson MD Work Phone: [facility]. Start: 07-31-2020 End: 07-31-2020 Patient encounter procedure Maureen Adamson MD Work Phone: [facility] Start: 07-07-2020 End: 07-07-2020 Medication Maureen Adamson MD Work Phone: [facility]. Start: 07-07-2020 End: 07-07-2020 Orders Maureen Adamson MD Work Phone: [facility]. Start: 07-07-2020 End: 07-07-2020 Patient encounter procedure Maureen Adamson MD Work Phone: [facility]. Start: 07-03-2020 End: 07-03-2020 Patient encounter procedure Maureen Adamson MD Work Phone: [facility]. Start: 06-30-2020 End: 06-30-2020 Patient encounter procedure Maureen Adamson MD Work Phone: [facility] Start: 05-31-2020 End: 05-31-2020 Patient encounter procedure Maureen Adamson MD Work Phone: [facility] Start: 03-28-2020 End: 03-28-2020 Office outpatient visit 15 minutes Maureen Adamson MD Work Phone: [facility]. Start: 01-17-2020 End: 01-17-2020 Office outpatient visit 15 minutes Maureen Adamson MD Work Phone: [facility]. Start: 09-07-2019 End: 09-07-2019 Office outpatient visit 15 minutes Maureen Adamson MD Work Phone: [facility]. Start: 09-03-2019 End: 09-03-2019 Medication Maureen Adamson MD Work Phone: [facility]. Start: 05-19-2019 End: 05-19-2019 Medication Maureen Adamson MD Work Phone: [facility]. Start: 05-10-2019 End: 05-10-2019 Office outpatient visit 15 minutes Maureen Adamson MD Work Phone: [facility]. Start: 04-06-2019 End: 04-06-2019 Office outpatient visit 15 minutes Maureen Admason MD Work Phone: [facility]. Start: 04-06-2019 End: 04-06-2019 Telephone follow-up Maureen Adamson MD Work Phone: [facility]. Start: 12-24-2018 End: 12-25-2018 Patient encounter procedure Maureen Adamson MD Work Phone: [facility]. Start: 08-25-2018 End: 08-25-2018 Telephone follow-up Maureen Adamson MD Work Phone: [facility]. Start: 08-24-2018 End: 08-24-2018 Historical Summary Maureen Adamson MD Work Phone: [facility]. Start: 06-23-2018 End: 06-23-2018 Telephone follow-up Maureen Adamson MD Work Phone: [facility]. Start: 06-22-2018 End: 06-22-2018 Orders Maureen Adamson MD Work Phone: [facility]. Start: 06-19-2018 End: 06-19-2018 Orders Maureen Adamson MD Work Phone: [facility]. Start: 06-16-2018 End: 06-16-2018 Orders Maureen Adamson MD Work Phone: [facility]. Start: 06-15-2018 End: 06-15-2018 Office outpatient visit 15 minutes Maureen Adamson MD Work Phone: [facility]. Start: 04-01-2018 End: 04-01-2018 Office outpatient visit 15 minutes Maureen Adamson MD Work Phone: [facility]. Start: 02-20-2018 End: 02-20-2018 Orders Maureen Adamson MD Work Phone: [facility]. Start: 02-09-2018 End: 02-09-2018 Office outpatient visit 15 minutes Maureen Adamson MD Work Phone: [facility]. Start: 09-02-2017 End: 09-02-2017 Historical Summary Maureen Adamson MD Work Phone: [facility]. Start: 07-28-2017 End: 07-28-2017 Office outpatient visit 15 minutes Maureen Adamson MD Work Phone: [facility]. Start: 06-26-2017 End: 06-26-2017 Office outpatient visit 10 minutes Maureen Adamson MD Work Phone: [facility]. Start: 06-12-2017 End: 06-16-2017 Patient encounter procedure Maureen Adamson MD Work Phone: [facility]. Start: 06-09-2017 End: 06-09-2017 Medication Maureen Adamson MD Work Phone: [facility]. Start: 06-04-2017 End: 06-07-2017 Office outpatient visit 15 minutes Maureen Adamson MD Work Phone: [facility]. Start: 05-27-2017 End: 05-27-2017 Medication Maureen Adamson MD Work Phone: [facility]. Start: 02-10-2017 End: 02-10-2017 Office outpatient visit 15 minutes Maureen Adamson MD Work Phone: [facility]. Start: 08-06-2016 End: 08-06-2016 Orders Maureen Adamson MD Work Phone: [facility]. Start: 06-04-2016 End: 06-04-2016 Office outpatient visit 15 minutes Maureen Adamson MD Work Phone: [facility]. Start: 05-14-2016 End: 05-14-2016 Office outpatient visit 15 minutes Maureen Adamson MD Work Phone: [facility]. Start: 05-07-2016 End: 05-07-2016 Office outpatient visit 15 minutes Maureen Adamson MD Work Phone: [facility]. Start: 04-16-2016 End: 04-16-2016 Patient encounter procedure Maureen Adamson MD Work Phone: [facility]. Start: 02-26-2016 End: 02-26-2016 Patient encounter procedure Maureen Adamson MD Work Phone: [facility]. Start: 02-07-2016 End: 02-07-2016 Patient encounter procedure Maureen Adamson MD Work Phone: [facility]. Start: 11-20-2015 End: 11-20-2015 Office outpatient visit 15 minutes Maureen Adamson MD Work Phone: [facility]. Start: 11-06-2015 End: 11-06-2015 Medication Maureen Adamson MD Work Phone: [facility]. Start: 08-16-2015 End: 08-16-2015 Medication Maureen Adamson MD Work Phone: [facility]. Start: 05-08-2015 End: 05-08-2015 Medication Maureen Adamson MD Work Phone: [facility]. Start: 04-25-2015 End: 04-25-2015 Medication Maureen Adamson MD Work Phone: [facility]. Start: 2014 End: 2014 Medication Maureen Adamson MD Work Phone: [facility]. Start: 10-25-2014 End: 10-25-2014 Medication Maureen Adamson MD Work Phone: [facility]. Start: 09-21-2014 End: 09-21-2014 Medication Maureen Adamson MD Work Phone: [facility]. Start: 08-16-2014 End: 08-16-2014 Medication Maureen Adamson MD Work Phone: [facility]. Start: 08-01-2014 End: 08-01-2014 Office outpatient visit 15 minutes Maureen Adamson MD Work Phone: [facility]. Start: 07-04-2014 End: 07-04-2014 Medication Maureen Adamson MD Work Phone: [facility]. Start: 06-10-2014 End: 06-10-2014 Medication Maureen Adamson MD Work Phone: [facility]. Start: 05-06-2014 End: 05-06-2014 Medication Maureen Adamson MD Work Phone: [facility]. Start: 03-29-2014 End: 03-29-2014 Medication Maureen Adamson MD Work Phone: [facility]. Start: 02-15-2014 End: 02-15-2014 Medication Maureen Adamson MD Work Phone: [facility]. Start: 01-25-2014 End: 01-25-2014 Patient encounter procedure Maureen Adamson MD Work Phone: [facility]. Start: 01-18-2014 End: 01-18-2014 Patient encounter procedure Maureen Adamson MD Work Phone: [facility]. Start: 12-13-2013 End: 12-13-2013 Medication Maureen Adamson MD Work Phone: [facility]. Start: 11-29-2013 End: 11-29-2013 Patient encounter procedure Maureen Adamson MD Work Phone: [facility]. Start: 11-09-2013 End: 11-09-2013 Medication Maureen Adamson MD Work Phone: [facility]. Start: 10-08-2013 End: 10-08-2013 Patient encounter procedure Maureen Adamson MD Work Phone: [facility]. Start: 08-06-2013 End: 08-06-2013 Medication Maureen Adamson MD Work Phone: [facility]. Start: 06-29-2013 End: 06-29-2013 Medication Maureen Adamson MD Work Phone: [facility]. Start: 06-25-2013 End: 06-25-2013 Orders Maureen Adamson MD Work Phone: [facility]. Start: 06-15-2013 End: 06-15-2013 Orders Maureen Adamson MD Work Phone: [facility]. Start: 06-10-2013 End: 06-10-2013 Patient encounter procedure Maureen Adamson MD Work Phone: [facility]. Start: 05-04-2013 End: 05-04-2013 Medication Maureen Adamson MD Work Phone: [facility]. Start: 03-29-2013 End: 03-29-2013 Medication Maureen Adamson MD Work Phone: [facility]. Start: 01-26-2013 End: 01-26-2013 Medication Maureen Adamson MD Work Phone: [facility]. Start: 12-23-2012 End: 12-23-2012 Patient encounter procedure Maureen Adamson MD Work Phone: [facility]. Start: 12-22-2012 End: 12-22-2012 Medication Maureen Adamson MD Work Phone: [facility]. Start: 11-26-2012 End: 11-26-2012 Medication Maureen Adamson MD Work Phone: [facility]. Start: 11-05-2012 End: 11-05-2012 Patient encounter procedure Maureen Adamson MD Work Phone: [facility]. Start: 11-03-2012 End: 11-03-2012 Medication Maureen Adamson MD Work Phone: [facility]. Start: 10-12-2012 End: 10-12-2012 Medication Maureen Adamson MD Work Phone: [facility]. Start: 08-17-2012 End: 08-17-2012 Patient encounter procedure Maureen Adamson MD Work Phone: [facility]. Start: 07-27-2012 End: 07-27-2012 Medication Maureen Adamson MD Work Phone: [facility]. Start: 07-20-2012 End: 07-20-2012 Medication Maureen Adamson MD Work Phone: [facility]. Start: 06-12-2012 End: 06-12-2012 Medication Maureen Adamson MD Work Phone: [facility]. Start: 05-06-2012 End: 05-06-2012 Medication Maureen Adamson MD Work Phone: [facility]. Start: 04-06-2012 End: 04-06-2012 Medication Maureen Adamson MD Work Phone: [facility]. Start: 03-04-2012 End: 03-04-2012 Patient encounter procedure Maureen Adamson MD Work Phone: [facility]. Start: 12-18-2011 End: 12-18-2011 Medication Maureen Adamson MD Work Phone: [facility]. Start: 11-14-2011 End: 11-14-2011 Medication Maureen Adamson MD Work Phone: [facility]. Start: 10-01-2011 End: 10-01-2011 Medication Maureen Adamson MD Work Phone: [facility]. Start: 09-02-2011 End: 09-02-2011 Patient encounter procedure Maureen Adamson MD Work Phone: [facility]. Start: 05-28-2011 End: 05-28-2011 Medication Maureen Adamson MD Work Phone: [facility] Start: 04-29-2011 End: 04-29-2011 Patient encounter procedure Maureen Adamson MD Work Phone: [facility]. Start: 03-27-2011 End: 03-27-2011 Patient encounter procedure Maureen Adamson MD Work Phone: [facility]. Start: 02-01-2011 End: 02-01-2011 Medication Maureen Adamson MD Work Phone: [facility]. Start: 01-17-2011 End: 01-17-2011 Orders Maureen Adamson MD Work Phone: [facility]. Start: 01-17-2011 End: 01-17-2011 Patient encounter procedure Maureen Adamson MD Work Phone: [facility] Start: 11-22-2010 End: 11-22-2010 Medication Maureen Adamson MD Work Phone: [facility]. Start: 10-15-2010 End: 10-15-2010 Medication Maureen Adamson MD Work Phone: [facility]. Start: 09-17-2010 End: 09-17-2010 Medication Maureen Adamson MD Work Phone: [facility]. Start: 06-29-2010 End: 06-29-2010 Medication Maureen Adamson MD Work Phone: [facility]. Start: 05-18-2010 End: 05-18-2010 Patient encounter procedure Maureen Adamson MD Work Phone: [facility]. Start: 05-18-2010 End: 05-18-2010 Historical Summary Maureen Adamson MD Work Phone: [facility] Procedures Date Procedure Procedure Detail Performing Clinician Start: 08-04-2023 End: 09-02-2023 Screening digital breast tomosynthesis bi Maureen Adamson MD Work Phone: Start: 06-17-2023 End: 06-17-2023 Depression screening Maureen Adamson MD Work Phone: Start: 06-17-2023 End: 06-17-2023 Pos clin depres scrn f/u doc Maureen Adamson MD Work Phone: Start: 09-13-2020 End: 09-13-2020 Radex shoulder complete minimum 2 views Leonora Miller PA-C Work Phone: Start: 07-31-2020 End: 08-01-2020 Radex hip unilateral with pelvis 2-3 views Leonora Miller PA-C Work Phone: Start: 07-07-2020 End: 07-12-2020 Ct abdomen & pelvis w/contrast material Leonora Miller PA-C Work Phone: Start: 07-03-2020 End: 07-03-2020 Lab findings surveillance Anisha harris ASSISTANT CURATOR Plan of Treatment Date Care Activity Detail Author Start: 08-04-2023 Screening digital br east tomosynthesis bi Mammogram 3D (tomosynthesis), bilateral (25537) Start: 04-Aug-2023 Intent [facility].; [employer] [place]. Start: 08-06-2021 Comprehensive metabo lic panel CMP w/ GFR* ([id number]) Start: 06-Aug-2021 11:04 Request [facility].; [employer] Start: 08-06-2021 Lipid panel LIPID PANEL ([id number]) Start: 06-Aug-2021 11:03 Request [employer] [place] Start: 07-20-2021 End: 07-23-2021 Ct limited/localized follow up study CT KUB Date: 20-Jul-2021 [facility] [employer] Start: 07-28-2017 Screening mammograph y bi 2-view breast inc cad Mammogram Bilateral Screening ([id number]) Start: 28-Jul-2017 Intent [facility].; [employer] Start: 06-12-2017 Screening mammograph y bi 2-view breast inc cad Mammogram Bilateral Screening ([id number]) Start: 12-Jun-2017 Intent [facility].; [employer] dexAMETHasone so d phos (bulk) 100 % powder Ordered: 04-Mar-2012 TENZIN Shaw [facility].; [facility] Immunizations Immunization Date Immunization Notes Care Provider Stewart joy 04-03-2021 COVID-Luann (AD26 .5 ML) Maureen Adamson MD Work Phone: [employer] [place] [employer] [employer] 06-03-2017 influenza, injectabl e, quadrivalent, contains preservative Maureen Adamson MD Work Phone: [employer]; [facility]. 08-18-2007 tetanus toxoid, redu elvin diphtheria toxoid, and acellular pertussis vaccine, adsorbed Maureen Adamson MD Work Phone: [employer]; [facility] Payers Date Payer Category Payer Unknown [id number] 1970 Unknown [id number] 1970 Unknown [id number] Unknown ANTHEM Social History Date Type Detail Facility Alcohol Use: Alcohol Use: ; O ccasional alcohol use. [place] [employer] [facility]. Caffeine Use Caffeine Use [facility]. Tobacco Use: Tobacco Use: ; S mokes < 1 pack of cigarettes per day. [facility]. Tobacco Use: Tobacco Use: ; F ormer smoker. Status: Inactive [facility].; [facility]. Female [facility].; [facility]. Work Phone: Occasional alcohol use [facility]. Work Phone: Smokes < 1 pack of cigarettes per day [employer] [facility]. Work Phone: Summary Purpose Family History Arthritis Status:Active Comments:multipl e family members./ Breast Cancer Status:Active Comments:Cousin. x 2 Cancer Status:Active Comments:Sister. melanoma Coronary Artery Disease Status:Active Hypertension Status:Active Comments:Father. Sister. Lung Cancer Status:Active Comments:Paterna l Grandfather. Arthritis Status:Active Comments:multipl e family members./ Breast Cancer Status:Active Comments:Cousin. x 2 Cancer Status:Active Comments:Sister. melanoma Coronary Artery Disease Status:Active Hypertension Status:Active Comments:Father. Sister. Lung Cancer Status:Active Comments:Paterna l Grandfather. Arthritis Status:Active Comments:multipl e family members./ Breast Cancer Status:Active Comments:Cousin. x 2 Cancer Status:Active Comments:Sister. melanoma Coronary Artery Disease Status:Active Hypertension Status:Active Comments:Father. Sister. Lung Cancer Status:Active Comments:Paterna l Grandfather. Arthritis Status:Active Comments:multipl e family members./ Breast Cancer Status:Active Comments:Cousin. x 2 Cancer Status:Active Comments:Sister. melanoma Coronary Artery Disease Status:Active Hypertension Status:Active Comments:Father. Sister. Lung Cancer Status:Active Comments:Paterna l Grandfather. Advance Directives No Advanced Directives Records FoundNo Advanced Directives Records Found Additional Source Comments INFORMATION SOURCE (unrecogn ized section and content) DATE CREATED AUTHOR AUTHOR'S ORGANIZ ATION 09/05/2023 [facility] FOR RECORDS PERTAINING TO PATIENTS WHO ARE OR HAVE BEEN ENROLLED IN A CHEMICAL DEPENDENCY/SUBSTANCEABUSE PROGRAM, SOME INFORMATION MAY BE OMITTED. This clinical summary was aggregated from multiple sources. Caution should be exercised in using it in the provision of clinical care. This summary normalizes information from multiple sources, and as a consequence, information in this document may materially change the coding, format and clinical context of patient data. In addition, data may be omitted in some cases. CLINICAL DECISIONS SHOULD BE BASED ON THE PRIMARY CLINICAL RECORDS. [email or web address] provides no warranty or guarantee of the accuracy or completeness of information in this document.
== END | disposition home or self-care (01) ==
LOC: LABSPEC 15:50
PROVIDERS: PCP Family Medicine; Referring Provider Surgery; Visit Provider Surgery
DX: R92.8 Other abnormal and inconclusive findings on diagnostic imaging of breast (principal)
CPT/HCPCS: 88305; 88341; 88342

== ENCOUNTER → 2024-03-23 | Outpatient (CLI) | payer BC, SELFPAY ==
--- NOTE | 2024-03-23 10:28 | US_ITS ---
STUDY: ULTRASOUND BREAST - LEFT REASON FOR EXAM: Female, 53 years old. Follow-up for left breast biopsy. Left breast lump. TECHNIQUE: Axial and longitudinal images of the LEFT breast were performed with a high resolution ultrasound transducer. # OF IMAGES: 24 COMPARISON: Comparison is made with prior outside examination dated September 04, 2023. FINDINGS: LEFT Breast: The lateral aspect of the left breast was examined with ultrasound. There is a 6 mm x 5 mm x 5 mm hypoechoic nodule at the 3:00 position of the breast at 5 cm from nipple. Increased vascularity is seen. There has been no change. The patient has had a prior biopsy of this nodule. US/Breast Limited Unilateral IMPRESSION: Stable 6 mm x 5 mm x 5 mm hypoechoic solid nodule at the 3:00 position in the breast at 5 cm from nipple. Biopsy of this lesion was performed. ASSESSMENT CATEGORY: BIRADS Category 2: Benign. A letter regarding these results will be sent to the patient by the facility within 30 days. Electronically Signed: Pérez Zuniga MD at 10:59 EDT ,
== END | disposition home or self-care (01) ==
LOC: OPUS 10:22
PROVIDERS: PCP Family Medicine; Referring Provider Surgery; Visit Provider Surgery
DX: N63.23 Unspecified lump in the left breast, lower outer quadrant (principal)
CPT/HCPCS: 76642